=== PATIENT | female | born 1975 | race Caucasian/White ===

== ENCOUNTER → 2021-02-27 14:11 | Outpatient (CLI) | payer BC, SELFPAY ==
[2021-02-27 13:39] VITALS: BMI 36.1
== END ==
PROVIDERS: PCP Internal Medicine; Referring Provider Nurse Practitioner Women's Health; Visit Provider Nurse Practitioner Women's Health
DX: Z13.0 Encounter for screening for diseases of the blood and blood-forming organs and certain disorders involving the immune mechanism (principal); Z83.2 Family history of diseases of the blood and blood-forming organs and certain disorders involving the immune mechanism
CPT/HCPCS: 36415

== ENCOUNTER → 2021-03-13 09:56 | Outpatient (CLI) | payer BC, SELFPAY ==
--- NOTE | 2021-03-13 | EMB_PTH ---
PATIENT: TRISHA CAMP LOC: [facility]#:[id number] AGE/SX: 50/F ROOM: RE03/13/[address]: NEVILLE Spence : 1975 BED: DIS: SPEC #: [id number] RECD: 03/13/21 11:02 STATUS: INEZ JEANA #: [id number] ISMA: 03/13/21 00:[address]: Ann Steel NP DEPT: SURGICAL PATHOLOGY RECD BY: Son Light ENTERED: 03/13/21 11:02 SP TYPE: ENDOM BX/C ANDRESSA DR: Dr. Cortney Hernandez DO Tissues: Endometrium, NOS Procedures: Surgery Specimen Level IV HEADER OPERATION: Endometrial biopsy PRE-OP DIAGNOSIS: PMB TISSUE SUBMITTED: Endometrial biopsy MICROSCOPIC DIAGNOSIS Endometrial biopsy: Secretory endometrium. JOSE:aleta 03/14/2021 MICROSCOPIC DESCRIPTION Slides are reviewed. GROSS DESCRIPTION Received is one container labeled with the patient's name and not further designated. The specimen consists of multiple irregular fragments of pink-red soft tissue that in aggregate measure 3 x 2.5 x 0.3 cm. The specimen is totally submitted in one cassette. / SJ:aleta 03/13/21 TC:4 CPT: 90198
== END ==
PROVIDERS: PCP Internal Medicine; Referring Provider Nurse Practitioner Women's Health; Visit Provider Nurse Practitioner Women's Health
DX: N95.0 Postmenopausal bleeding (principal)
CPT/HCPCS: 36415; 81241; 88305

== ENCOUNTER → 2021-03-29 13:48 | Outpatient (CLI) | payer BC, SELFPAY ==
--- NOTE | 2021-03-29 13:48 | US_ITS ---
STUDY: ULTRASOUND OF THE FEMALE PELVIS - COMPLETE REASON FOR EXAM: Female, 45 years old. Bleeding; enlarged uterus LMP: 03/20/2021. TECHNIQUE: Transabdominal and Transvaginal TECHNICAL QUALITY: Adequate. COMPARISON: Comparison is made with prior examination dated 04/27/2017. FINDINGS: The uterus is anteverted and is in a midline position. The uterus is enlarged and measures 14.5 cm x 8 cm x 6.1 cm. There is a Nabothian cyst of the cervix. The endometrium measures 8 mm in thickness, and is hyperechoic. There is no demonstrated endometrial mass. There is a 4.9 cm x 4.6 cm x 4.6 cm fundal uterine fibroid. I.U.D. - The patient does not have an I.U.D. The right ovary is non-visualized. The left ovary is non-visualized. There is no fluid in the cul-de-sac. The pre void volume of the bladder was 366 ml. US/Transvaginal Non- IMPRESSION: Enlarged fibroid uterus. Electronically Signed: Mike Maurer MD at 14:56 EDT , Service support ,
--- NOTE | 2021-03-29 13:48 | US_ITS ---
STUDY: ULTRASOUND OF THE FEMALE PELVIS - COMPLETE REASON FOR EXAM: Female, 45 years old. Bleeding; enlarged uterus LMP: 03/20/2021. TECHNIQUE: Transabdominal and Transvaginal TECHNICAL QUALITY: Adequate. COMPARISON: Comparison is made with prior examination dated 04/27/2017. FINDINGS: The uterus is anteverted and is in a midline position. The uterus is enlarged and measures 14.5 cm x 8 cm x 6.1 cm. There is a Nabothian cyst of the cervix. The endometrium measures 8 mm in thickness, and is hyperechoic. There is no demonstrated endometrial mass. There is a 4.9 cm x 4.6 cm x 4.6 cm fundal uterine fibroid. I.U.D. - The patient does not have an I.U.D. The right ovary is non-visualized. The left ovary is non-visualized. There is no fluid in the cul-de-sac. The pre void volume of the bladder was 366 ml. US/Pelvic (Non ) IMPRESSION: Enlarged fibroid uterus. Electronically Signed: Mike Maurer MD at 14:56 EDT , Service support ,
== END ==
PROVIDERS: PCP Internal Medicine; Referring Provider Nurse Practitioner Women's Health; Visit Provider Nurse Practitioner Women's Health
DX: N92.0 Excessive and frequent menstruation with regular cycle (principal); N85.2 Hypertrophy of uterus
CPT/HCPCS: 76830; 76856

== ENCOUNTER → 2021-05-03 12:25 | Outpatient (CLI) | payer BC, SELFPAY ==
[2021-05-03 13:23] LABS: Absolute Lymphocyte Count 2.79 X10^3/uL (0.83-4.51); Absolute Neutrophil Count 8.5 X10^3/uL (2.0-7.7); Basophil# 0.03 X10^3/uL; Basophil% 0.2 % (0-1); Eosinophil# 0.22 X10^3/uL; Eosinophils% 1.8 % (0-5); Hematocrit 45.7 % (37-47); Hemoglobin 14.6 g/dL (12.0-15.0); Lymphocyte # 2.79 X10^3/ul (0.83-4.51); Lymphocyte % 22.5 % (19-41); Mean Corp Hgb Conc 31.9 g/dL (32-36); Mean Corpuscular Hgb 28.2 pg (27.0-32.0); Mean Corpuscular Volume 88.2 fL (81-99); Mean Platelet Vol. 11.2 fl (6.2-12.0); Monocyte# 0.76 X10^3/uL; Monocyte% 6.1 % (0-10); NRBC Flagged by Analyzer 0 % (0-5); Neutrophil # 8.52 X10^3/uL (2.7-7.7); Neutrophil % 68.9 % (47-70); Platelet Count 302 K/mm3 (150-450); RBC Distribution Width SD 42.4 fl (35.1-43.9); Red Blood Count 5.18 M/mm3 (4.2-5.4); White Blood Count 12.4 K/mm3 (4.4-11.0)
[2021-05-03 13:59] LABS: Thyroid Stim Hormone (TSH) 2.17 uIU/mL (0.358-3.74)
== END ==
PROVIDERS: PCP Internal Medicine; Referring Provider Obstetrics & Gynecology; Visit Provider Obstetrics & Gynecology
DX: Z13.29 Encounter for screening for other suspected endocrine disorder (principal); N92.0 Excessive and frequent menstruation with regular cycle
CPT/HCPCS: 36415; 84443; 85025

== ENCOUNTER 2021-07-09 08:33 | Day surgery (SDC) | payer BC, SELFPAY ==
[2021-07-09] VITALS (10 sets, daily range): BP systolic 115–134; BP diastolic 69–89; PULSE 63–98; RESP 14–18; TEMP 36.4–36.8; O2SAT 49–99; BMI 39.0
[2021-07-09] MEDS: Celecoxib 200 MG Capsule 400 MG PO (09:16)
[2021-07-09] MEDS: Phenazopyridine 95 MG Tablet 190 MG PO (09:16)
[2021-07-09] MEDS: Gabapentin 600 MG Tablet PO (09:16)
[2021-07-09] MEDS: Acetaminophen 500 MG Tablet 1000 MG PO ×2 (09:16→15:06)
[2021-07-09] MEDS: Enoxaparin 40 MG/0.4 ML Syringe SC (09:17)
[2021-07-09] MEDS: dexAMETHasone 10 MG/ML Vial 8 MG IV (09:17)
[2021-07-09 09:18] LABS: Internal QC Validated? YES +Cl - CLEAR BKGD; Pregnancy, Urine Negative Negative
[2021-07-09] MEDS: Lactated Ringers 1,000 ML 40 ML IV (09:32)
--- NOTE | 2021-07-09 09:44 | HP.PCM_ITS ---
History and Physical Date of Admission: 07/09/21 Vital Signs 06/24/21 15:32 Height 5 ft 3 in Weight: 216 lb BMI 38.2 BP 110/82 H Intake Visit Reasons: pre op lavh/bs Chief Complaint: pre op LAVH BS Probation Agent Required: No Is patient in pain?: No Allergies No Known Allergies Allergy (Unverified 06/24/21 15:32) Medications NK 06/24/21 [History Confirmed 06/24/21] Is last menstrual period known: No Post menopausal: No Patient : No : No PFSH Medical History Enlarged uterus Family History Father Heart disease Diabetes Hypertension Mother Hypertension Rheumatoid arthritis Factor 5 Leiden mutation, heterozygous Sister Factor 5 Leiden mutation, heterozygous Social History household members: spouse and other number of children: 2 current occupational status: employed current occupation: self employed history of recent travel: Yes Smoking Status: Never smoker alcohol intake: never substance use type: does not use diet: other what type of physical activity do you participate in: none seatbelt use: always do you feel safe at home: Yes additional social history: - Chris HPI pre op lavh/bs Details: TRISHA CAMP is a 46 year old who presents for preop visit having heavy periods. she has an enlarged uterus with fibroids Female Reproductive History Menopausal Symptoms: No hot flashes, No night sweats, No difficulty concentrat ing and No change in libido Pregancy History 2 Elective abortions Hx Para 2 Spontaneous abortions Hx # Term Pregnancies Ectopic pregnancies Hx # Pregnancies Multiple births # of living children 2 Past Pregnancies Del. Date Name GA/Weeks Outcome Route Bth Weight Gen Labor Lgth Anesthesia Del Locatn Provider FOB Unknown Coral 1994 Unknown Storm 1996 ROS Const Constitutional: Denies fatigue, night sweats, weight gain or weight loss ENT ENT: Reports system reviewed and no additional complaints, except as documented Cardio Card: Denies chest pain Resp Resp: Denies cough or dyspnea GI GI: Reports as per HPI; Denies constipation, nausea or vomiting : Reports as per HPI, urinary frequency, urinary incontinence and urinary urgency; Denies hot flashes, nipple discharge, vaginal discharge, vaginal dryness, vaginal odor or vaginal pruritus Musc Musc: Denies arthralgias, back pain or muscle weakness Skin Skin/Breast: Denies alopecia, change in hair, dry skin, breast mass, breast pain, breast skin changes or nipple discharge Neuro Neuro: Reports system reviewed and no additional complaints, except as documented Psych Psych: Reports system reviewed and no additional complaints, except as documented; Denies change in libido or difficulty concentrating Endo Endo: Denies cold intolerance, excessive sweating, heat intolerance or polydipsia Wilber/Lymph Hematologic/Lymphatic: Denies easy bleeding, Denies easy bruising and Denies lymphadenopathy Exam Const General: cooperative, healthy appearing, comfortable, no acute distress and well developed Orientation: alert [facility] Head: normal to inspection and normocephalic Ears: hearing grossly normal bilaterally and external ears normal Nose: external nose normal and nares normal Face and sinus: normal facial exam Neck Neck: normal visual inspection and no lymphadenopathy Thyroid: thyroid normal Chest Chest palpation & inspection: normal inspection of the chest Resp Effort & Inspection: normal respiratory effort Auscultation: clear to auscultation bilaterally Cardio Rate: regular rate Rhythm: regular rhythm Heart Sounds: S1 normal and S2 normal GI Inspection: normal to inspection and non-distended Palpation: soft and no hepatosplenomegaly General: bladder normal to palpation External Female Exam: normal external appearance and normal appearance of the urethra Urethra: normal appearance of the urethra, normal palpation and no discharge Speculum Exam - Vagina: normal appearance of the vagina and normal vaginal discharge Speculum Exam - Cervix: normal appearance of the cervix and nontender Bimanual Exam- Vagina & Uterus: normal bimanual exam, uterine size normal, bladder normal to palpation, uterine shape normal, No tender, uterine mobility normal, consistency normal, normal palpation and non-tender Bimanual Exam- Adnexa, other: normal adnexae, adnexae mobile, no masses and normal Pelvic Support: normal [facility] Other: gross motor intact no deficits, full bilateral strength Skin General: no rashes or lesions noted Neuro General: patient alert, patient awake, moves all extremities and no focal motor deficits Motor: muscle tone normal throughout Extrem General: normal to inspection and no pedal edema Psych Appearance: grossly normal Mental Status: mental status grossly normal Affect: normal affect Speech and Movement: speech and movement normal Coding Level of Care Code No Charge Diagnoses Enlarged uterus N85.2 Menorrhagia with regular cycle N92.0 Assessment and Plan Assessment and Plan (1) Enlarged uterus: Status: Acute Comment: 14 cm with 5 cm fibroid, plan ROCKY BS. Chris Plan - Dr. Catalina Stanley MD: After discussing the patient's diagnosis and treatment plan options, patient wishes to proceed with surgical management. I have discussed with the patient the risks, benefits, and alternatives of the procedure which include but are not limited to risks of anesthesia, bleeding, infection, possible damage to bowel, bladder, or surrounding vasculature which could lead to additional surgery to evaluate any complications. Patient agrees to procedure and wishes to proceed. ACOG/uptodate references given for additional information regarding procedure. (2) Menorrhagia with regular cycle: Status: Acute Comment: cbc tsh, due to fibroids, recommend emb also. 06/24/21 1554 .UPDATE- I have seen the patient and performed any clinically relevant updates to the history and physical exam. Catalina Stanley MD
--- NOTE | 2021-07-09 10:09 | PCM.OPRPT ---
Problems Associated Problem List Diagnoses (1) Menorrhagia with regular cycle: (2) Enlarged uterus: Report of Operation Date of Procedure: 07/09/21 Pre-Operative Diagnosis: AUB Post-Operative Diagnosis: same Surgery/Procedure Performed:: JUAN DANIEL Description of Surgical Findings:: enlarged fibroid uterus poultry tender: Annemarie Russo Type of Anesthesia: General Specimen's removed: uterus, tubes Drains: thomas Estimated Blood Loss (mL): 100 Fluids Replaced: crystalloid Description of Procedure: Patient received preoperative antibiotics and SCDs were on preoperatively. Patient was taken back to the operating room and placed in the dorsal lithotomy position. General anesthesia was induced and patient was prepped and draped in normal sterile fashion. Uterine manipulator was placed inside the uterus and Thomas catheter placed in the bladder. The umbilicus was grasped with towel clamps and an intraumbilical incision was made after injecting with quarter percent Marcaine and a Veress needle entered into the abdomen confirmed to be intra-abdominal with a low opening pressure. Abdomen was insufflated with CO2 gas and the Veress needle removed and the 5 mm trocar was placed under direct visualization without complication. Right and left lower quadrants were transilluminated and injected with quarter percent Marcaine and 5 mm ports placed under direct visualization. Pelvis was well visualized see operative findings for additional information. Bilateral fallopian tubes were identified and transected with the LigaSure device across the mesosalpinx to the level of the utero-ovarian ligament which was also transected with the LigaSure device. The broad ligament was opened up by transecting the round ligament bilaterally and skeletonizing the uterine vessels bilaterally and creating a bladder flap using the LigaSure device. The uterine arteries were transected bilaterally with good visualization of the bladder and the ureters were seen to be inferior lateral to the operative area. Attention was then paid to the vaginal portion of the procedure and the cervix was grasped with Ayanna clamps and circumferentially injected with dilute vasopressin. A circumferential incision was made and the vaginal mucosa was mobilized off posteriorly and the cul-de-sac entered into sharply and a longneck speculum placed. The anterior cul-de-sac was then identified and entered into sharply. The uterosacral ligaments were clamped cut and suture ligated with 0 Monocryl bilaterally followed by the cardinal ligaments which were clamped cut and suture ligated bilaterally with 0 Monocryl. The uterus serially descended and was removed without difficulty. Pelvic sidewall pedicles were checked and noted to have excellent hemostasis. The vaginal mucosa was reapproximated incorporating the posterior peritoneum. This was reapproximated using 0 Vicryl [id number] sutures. Excellent hemostasis was noted. The pelvis and cul-de-sac were well visualized and no significant active bleeding noted but some raw areas were seen on the peritoneum and therefore Carroll was applied. Pressure was taken down and the areas visualized and noted of excellent hemostasis. All ports were removed under direct visualization without complication and the abdomen was desufflated of air. The instruments were removed from the abdomen and the vaginal sweep was negative. Port sites on the abdomen were closed with 4-0 Monocryl interrupted sutures and Steri's and windows were applied. She was awoken and taken recovery in stable condition. Grafts/Implants Used: none Complications none Admit VTE Documentation VTE Present on Admission: No VTE Mechan Device Prophylaxis: SCD's VTE Pharm Prophylaxis ordered?: Yes Procedures Urinary/Genital 52xxx-59xxx: 38903 LAVH+BS/O <250gr Uterus
--- NOTE | 2021-07-09 10:10 | EX.PCM.DISCH ---
Discharge Instructions Diet Discharge Diet: No restrictions Activity May resume sexual activity in: 6 weeks Weight Bearing Status: Full weight bearing Dressing / Incision Call your doctor if your incision/area has: Continuous Slow Oozing, Sudden Increased Bleeding, Increased Pain/ Swelling, Increased Redness and Foul Smelling Discharge Call your doctor if you observe: Fever of 101 or Higher, Using more than 1 pad per hour, Shortness of breath, Chest pain and Uncontrolled pain Suture Line Care: Avoid Pulling/Pushing and Avoid Pinching/Bending Remove Dressing in: 1 week (if present) Cleanse incision/area with: Soap & Water and Keep Dressing Clean & Dry Follow Up Care Please Follow Up With: Catalina Stanley MD When: Call to make an appointment with your doctor for a postop visit in 2 and 6 weeks. Test Results: Test results from this visit will be discussed in further detail at your follow-up appointment, if applicable. Discharge Plan Admission Primary Reason for Your Visit: hysterectomy Attending Provider: Catalina Stanley Primary Care Provider: Cortney Hernandez Discharge Orders/Prescriptions Prescriptions: New oxycodone-acetaminophen [Percocet] 5-325 mg tablet 1 tab PO Q6H PRN (Reason: pain) 7 Days Qty: 20 RF: 0 naproxen [naproxen] 500 MG tablet 500 mg PO BID PRN PRN (Reason: Pain) Qty: 30 RF: 1 Referrals / Follow Up: Cortney Hernandez DO [Primary Care Provider] - Disposition Disposition (needs filled in before D/C Order can be placed): Home, Self Care
[2021-07-09 10:26] LABS: Bedside Glucose 87 mg/dL (70-110)
[2021-07-09] MEDS: Bupivacaine 0.25% 30 ML Vial (10:30)
[2021-07-09] MEDS: Scopolamine 1mg/72hr Patch 1 PATCH TD (10:40)
[2021-07-09] MEDS: Lactated Ringers 1,000 ML 70 ML IV ×2 (10:40→14:58)
--- NOTE | 2021-07-09 10:40 | HYST_PTH ---
PATIENT: TRISHA CAMP [place] [facility] [id number] AGE/SX: 46/F ROOM: RE07/09/[address]: Dr. Catalina Stanley MD : 1975 BED: DIS: 07/09/2021 SPEC #: [id number] RECD: 07/09/21 13:28 STATUS: INEZ JEANA #: [id number] ISMA: 07/09/21 10:[address]: Catalina Stanley DEPT: SURGICAL PATHOLOGY RECD BY: Yi Perdomo ENTERED: 07/09/21 13:50 SP TYPE: HYSTERECT OTHR DR: Dr. Cortney Hernandez, DO Tissues: Uterus, NOS Procedures: Surgery Specimen Level V HEADER OPERATION: ERAS, hysterectomy, LAVH, salpingectomy PRE-OP DIAGNOSIS: Enlarged uterus, menorrhagia with regular cycle TISSUE SUBMITTED: Cervix, uterus, bilateral fallopian tubes MICROSCOPIC DIAGNOSIS Uterus, hysterectomy: Cervix ? squamous metaplasia and mild chronic inflammation. Endometrium ? proliferative endometrium. Myometrium ? leiomyoma. Right fallopian tube ? vascular congestion. Left fallopian tube ? vascular congestion. AM:aleta 07/10/2021 MICROSCOPIC DESCRIPTION Slides are reviewed. GROSS DESCRIPTION Received in fixative is one container labeled with the patient's name and designated uterus. The specimen consists of a morcellated uterus received in three fragments ranging in size from 2 to 10 cm and in aggregate weighing 294 gm. The presumed endocervical canal measures 3.8 cm in length and is grossly unremarkable. The triangular endometrial cavity measures 5 x 3 cm. The velvety, reddish-young endometrium measures up to 0.2 cm in thickness. The myometrium measures 2.8 cm in average thickness and contains a rubbery, pink-white nodule measuring 3.5 cm in greatest dimension. Serial sections of the nodule reveal rubbery, cut surface without areas of cyst formation or necrosis. The right and left fallopian tubes are similar in appearance. The average length is 6 cm and average diameter is 0.7 cm. The fimbrial ends on both fallopian tubes are grossly unremarkable. [employer] sections are submitted in ten cassettes as follows: 1 & 2 ? cervix and endocervix, 3 & 4 - anterior uterine wall, 5 & 6 - posterior uterine wall, 7 & 8 ? myometrial mass, 9 - right fallopian tube, 10 - left fallopian tube. / AM:aleta 07/09/21 TC:1 [facility]: [id number]
[2021-07-09] MEDS: Vasopressin 20 UNITS/ML Vial (10:50)
[2021-07-09] MEDS: Ondansetron 4 MG/2 ML Vial IV (11:53)
[2021-07-09 14:13] LABS: Hemoglobin 14.3 g/dL (12.0-15.0); Mean Corp Hgb Conc 33.3 g/dL (32-36); Mean Corpuscular Hgb 28.8 pg (27.0-32.0); Mean Corpuscular Volume 86.5 fL (81-99); Mean Platelet Vol. 10.5 fl (6.2-12.0); Platelet Count 266 K/mm3 (150-450); RBC Distribution Width CV 13.3 % (11.6-14.6); RBC Distribution Width SD 41.8 fl (35.1-43.9); Red Blood Count 4.97 M/mm3 (4.2-5.4); White Blood Count 15.3 K/mm3 (4.4-11.0)
[2021-07-09] MEDS: Ketorolac 30 MG/ML Syringe IV (14:59)
== END 2021-07-09 16:05 | disposition home or self-care (01) ==
LOC: SDC 08:34 → AC 08:34
PROVIDERS: Anesthesiology; PCP Internal Medicine; Referring Provider Obstetrics & Gynecology; Visit Provider Obstetrics & Gynecology
PROC: 0UT9FZZ Resection of Uterus, Via Natural or Artificial Opening With Percutaneous Endoscopic Assistance (ICD-10-PCS; CPT 58554; principal; 2021-07-09 10:15)
DX: N92.0 Excessive and frequent menstruation with regular cycle (principal); N85.2 Hypertrophy of uterus
CPT/HCPCS: 00944; 58554; 36415; 81025; 82962; 83735; 85027; 86850; 86900; 86901; 88307; J7120; J2405

== ENCOUNTER 2021-09-26 10:12 | Outpatient (CLI) | payer BC, SELFPAY ==
[2021-09-26 11:18] LABS: Hemoglobin A1c 5.6 % (3.8-5.6)
[2021-09-26 11:20] LABS: Rheumatoid Factor < 10.0 IU/mL (<15); Thyroid Stim Hormone (TSH) 2.35 uIU/mL (0.358-3.74)
[2021-09-27 11:57] LABS: AST(SGOT) 32 U/L (15-37); Alanine Aminotransfer ALT/SGPT 39 U/L (13-56); Albumin, Serum 3.8 g/dL (3.2-5.0); Alkaline Phosphatase 89 U/L (45-117); Anion Gap 5 (5-15); BUN 21 mg/dL (7-18); BUN/Creat Ratio 23.2 RATIO (10-20); Calcium,Total 9.2 mg/dL (8.5-10.1); Chloride 105 mmol/L (98-107); EST Glomerular Filtration Rate 71 mL/min (>60); Est Glom Filt Rate - Afr Amer 85 mL/min (>60); Globulin 3.9 g/dL (2.2-4.2); Glucose 101 mg/dL (74-106); Potassium 4.7 mmol/L (3.5-5.1); Protein, Total 7.7 g/dL (6.4-8.2); Sodium Level 137 mmol/L (136-145)
[2021-09-27 22:07] LABS: ANTINUCLEAR ANTIBODIES DIRECT Negative (Negative)
== END 2021-09-26 23:59 | disposition home or self-care (01) ==
LOC: PAVLAB 10:14
PROVIDERS: PCP Internal Medicine; Referring Provider Internal Medicine; Visit Provider Internal Medicine
DX: Z00.00 Encounter for general adult medical examination without abnormal findings (principal); Z13.1 Encounter for screening for diabetes mellitus; M25.50 Pain in unspecified joint; Z86.39 Personal history of other endocrine, nutritional and metabolic disease
CPT/HCPCS: 36415; 80053; 83036; 84443; 86038; 86225; 86235; 86431

== ENCOUNTER → 2022-10-20 | Outpatient (CLI) | payer BC, SELFPAY ==
--- NOTE | 2022-10-20 09:09 | NEURO_ITS ---
NCS and/or EMG Patient Report Ordering Doctor: Cortney Hernandez DATE OF SERVICE: 10/20/22 Indication: Approximately one year of bilateral hand numbness, pain, and tingling. Symptoms are present to some degree at all times, but worsen with certain activities. Evaluate for entrapment neuropathy. Findings: Nerve conduction studies were performed in the right and left upper extremities. The right median motor study recording the abductor pollicis brevis showed a normal amplitude, prolonged distal latency and mildly slowed conduction velocity. The right ulnar motor study recording the abductor digiti minimi showed a normal amplitude, normal distal latency and normal conduction velocity. No conduction block or focal slowing was present across the elbow. The right median sensory response recording digit two showed a slightly reduced amplitude, prolonged latency and markedly slowed conduction velocity. The right ulnar sensory response recording digit five showed a normal amplitude, latency and conduction velocity. The right radial sensory response recording over the extensor snuff box showed a normal amplitude, latency and conduction velocity. The left median motor study recording the abductor pollicis brevis showed a normal amplitude, prolonged distal latency and normal conduction velocity. The l eft ulnar motor study recording the abductor digiti minimi showed a normal amplitude, normal distal latency and normal conduction velocity. No conduction block or focal slowing was present across the elbow. The left median sensory response recording digit two showed a reduced amplitude, prolonged latency and markedly slowed conduction velocity. The left ulnar sensory response recording digit five showed a normal amplitude, latency and conduction velocity. The left radial sensory response recording over the extensor snuff box showed a normal amplitude, latency and conduction velocity. Needle EMG of the bilateral abductor pollicis brevis muscles was performed. On the right, insertional activity was increased with sparse positive sharp waves. Motor units were slightly large amplitude and long duration with normal recruitment. On the left, insertional activity was normal. Motor units were slightly large amplitude and long duration with normal recruitment. Impression: This is an abnormal study. 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 The pathophysiology is predominantly demyelination, however, there is evidence of some secondary axonal injury. These findings are compatible with the clinical diagnosis of carpal tunnel syndrome. Gregorio Rodriguez D.O. Multi Select Codes Neurology Neurology Interp Codes: 23038-81 Musc test done w/n test comp (interp) (Qty:2) and 28174-55 Nrv cndj test 9-10 studies (interp)
== END | disposition home or self-care (01) ==
PROVIDERS: PCP Internal Medicine; Referring Provider Internal Medicine; Visit Provider Internal Medicine
DX: G56.03 Carpal tunnel syndrome, bilateral upper limbs (principal)
CPT/HCPCS: 95885; 95911

== ENCOUNTER 2024-01-26 12:27 | Emergency (ER) | payer BC, SELFPAY ==
[2024-01-26 12:27] VITALS: BP 123/80; PULSE 108; RESP 18; TEMP 37.2; O2SAT 97; BMI 36.4
[2024-01-26 12:30] VITALS: BP 131/82; PULSE 109; RESP 18; TEMP 37.2; O2SAT 97
[2024-01-26 13:30] VITALS: BP 128/88; PULSE 88; RESP 18; TEMP 36.9; O2SAT 98
--- NOTE | 2024-01-26 14:34 | EDS_ITS ---
HPI History of Present Illness Chief Complaint: Fever Narrative Narrative: 48-year-old female presents with painful lumps, swelling, redness, and fever in her right axillary area. She states that her symptoms actually began about 11 days ago when she had a ping-pong ball sized mass in her right axillary area. It seems to be growing. She was seen and evaluated at the [place] emergency department on Thursday, 4 days ago where she was given IV antibiotics and placed on Keflex. They were unsure as to what the mass was so CT with IV contrast was performed and it appears that it is unable to be lanced because they are enlarged lymph nodes. Concern is for infectious process versus malignancy. While she is taking cephalexin, she reports fever today and she last took an antipyretic at 10 AM approximately 4 hours ago. She was told by her nurse practitioner that she should come to the emergency department for further evaluation. [facility] Medical History Acute pharyngitis, unspecified Wears contact lenses Anxiety Enlarged uterus Allergy/AdvReac Type Severity Reaction Status Date / Time No Known Allergies Allergy Verified 09/11/22 06:28 Family History Father Heart disease Diabetes Hypertension Mother Hypertension Rheumatoid arthritis Factor 5 Leiden mutation, heterozygous Sister Factor 5 Leiden mutation, heterozygous Surgical History History of bilateral salpingectomy History of [facility] Social History household members: spouse and other number of children: 2 current occupational status: employed current occupation: self employed history of recent travel: Yes Smoking Status: Never smoker alcohol intake: never substance use type: does not use diet: other what type of physical activity do you participate in: none seatbelt use: always do you feel safe at home: Yes additional social history: - Chris [employer] Narrative Constitutional: Positive fever, no chills. HEENT: No sore throat. No neck pain. No loss of vision. No rhinorrhea. Cardiovascular: No chest pain. No palpitations. No pedal edema. Respiratory: No cough, no shortness of breath. Abdominal: No abdominal pain. No nausea. No vomiting. Genitourinary: No dysuria. No hematuria. Musculoskeletal: No myalgias. No arthralgias. Right axillary masses, reportedly growing in size, tender to touch. Neurologic: No headaches. No dizziness. No lightheadedness. Skin: No rash. Positive redness in axillary area. Psychiatric: No depression. No anxiety. EXAM Physical Exam Narrative Exam Narrative: Afebrile. Vital signs noted. Nontoxic-appearing. Regular rate and rhythm. Lungs clear to auscultation bilaterally. Abdomen soft nontender with normal active bowel sounds. Positive enlarged masses right axillary with overlying erythema. No fluctuance. Const Vital Signs: 01/26/24 12:27 01/26/24 12:30 01/26/24 13:29 Temperature 99 F 99 F Temperature Source Temporal Temporal Pulse Rate 108 H 109 H Respiratory Rate 18 18 Respiratory Effort Normal Respiratory Pattern Normal Blood Pressure 123/80 H 131/82 H Blood Pressure Mean 94 98 Pulse Ox 97 97 Oxygen Delivery Method Room Air Room Air 01/26/24 13:30 01/26/24 15:00 01/26/24 16:10 Temperature 98.5 F 98.6 F 97.8 F Temperature Source Oral Oral Pulse Rate 88 88 78 Respiratory Rate 18 18 18 Respiratory Effort Respiratory Pattern Blood Pressure 128/88 H 121/80 H 121/80 H Blood Pressure Mean 101 93 93 Pulse Ox 98 98 98 Oxygen Delivery Method Room Air MDM MDM MDM Narrative Medical decision making narrative: The differential diagnosis was abscess versus enlarged lymph nodes versus enlarged sweat glands. Patient does have her CT report that I reviewed on her MyChart on her mobile phone which shows that they are enlarged lymph nodes. I do feel that her exam is more consistent with lymphadenitis. She is currently afebrile here. I also reviewed her CBC which showed a white count elevated at 16,000 and a hemoglobin of 12 with normal platelets. I will repeat this to make sure that her CBC has not changed significantly over the last 4 days. She was given a bolus of Rocephin as she had received that previously along with ketorolac. I reviewed her laboratory work and she has an elevated white count of 16.7, it has not changed significantly from her laboratory work a few days ago. Potassium slightly low at 3.2 which I think is nonspecific, glucose elevated at 113 with anion gap normal at 6. I had paged out to Dr. Brandon, but I do not feel she needs a change in her antibiotics. The erythema might be secondary to more hyperemia of the masses in her axilla. I reviewed the radiology report again and they are more nodular measuring up to 18 cm and 11 cm. I offered to write her for stronger pain medication but she declined and prefers [id number] medications such as Tylenol and ibuprofen. I put in a fast pass for oncology referral as there is concern for malignancy of these masses. I feel she can be discharged to follow-up. Return instructions to the emergency department were reviewed. She was not febrile here. I was able to discuss the patient with Dr. Brandon who agrees with fast pass and outpatient follow-up closely. Disposition is discharged home in stable condition. Patient is agreeable to the plan. History & Record Review Discussion w/independent historian: Patient Additional record(s) reviewed:: Prior outpatient record (CT report from after visit summary from [facility].) Lab Data Attestation: I reviewed the patient's lab results. Labs: Laboratory Results - last 24 hr 01/26/24 15:01 WBC 16.7 H RBC 4.48 Hgb 13.1 Hct 40.6 MCV 90.6 MCH 29.2 MCHC 32.3 RDW Std Deviation 43.0 RDW Coeff of Cornelius 13.0 Plt Count 276 MPV 10.3 Immature Gran % (Auto) 1.300 H Neut % (Auto) 81.8 H Lymph % (Auto) 8.3 L Pratt % (Auto) 7.8 Eos % (Auto) 0.5 Baso % (Auto) 0.3 Absolute Neuts (auto) 13.6 H Absolute Lymphs (auto) 1.39 Nucleated RBC % 0 Sodium 137 Potassium 3.2 L Chloride 106 Carbon Dioxide 25.0 Anion Gap 6 BUN 7 Creatinine 0.67 Estim Creat Clear Calc 109.04 Est GFR (MDRD) Af Amer 119 Est GFR (MDRD) Non-Af 98 BUN/Creatinine Ratio 10.4 Glucose 113 H Calcium 8.7 Discharge Plan Triage Chief Complaint: Fever ED Provider: Aravind Grimm Dx/Rx/DC Orders Clinical Impression: Mass of right axilla Instructions: ED Tumor, Uncertain Cause Other Ambulatory Orders: Fast Pass: Oncology Referral [facility] (Routine) Facility: [facility] - Location: [facility] Ordered By: Aravind Grimm Primary Care Provider: Oberhauser,Cortney Referrals: Cortney Hernandez, [Primary Care Provider] - Activity Restrictions/Additional Instructions: Follow-up with oncology as soon as possible. They should be contacting you tomorrow regarding your right axillary masses. Print Language: Vincentian Disposition Disposition: Home, Self Care
[2024-01-26] MEDS: Ketorolac 15 MG/ML Vial IV (14:57)
[2024-01-26] MEDS: Ceftriaxone 2 GM in 0.9% Normal Saline (50mL MB+) 50 ML IV (14:57)
[2024-01-26 15:00] VITALS: BP 121/80; PULSE 88; RESP 18; TEMP 37; O2SAT 98
[2024-01-26 15:10] LABS: Absolute Lymphocyte Count 1.39 X10^3/uL (0.83-4.51); Absolute Neutrophil Count 13.6 X10^3/uL (2.0-7.7); Basophil# 0.05 X10^3/uL; Basophil% 0.3 % (0-1); Eosinophil# 0.08 X10^3/uL; Eosinophils% 0.5 % (0-5); Hematocrit 40.6 % (37-47); Hemoglobin 13.1 g/dL (12.0-15.0); Lymphocyte # 1.39 X10^3/ul (0.83-4.51); Lymphocyte % 8.3 % (19-41); Mean Corp Hgb Conc 32.3 g/dL (32-36); Mean Corpuscular Hgb 29.2 pg (27.0-32.0); Mean Corpuscular Volume 90.6 fL (81-99); Mean Platelet Vol. 10.3 fl (6.2-12.0); Monocyte% 7.8 % (0-10); NRBC Flagged by Analyzer 0 % (0-5); Neutrophil # 13.64 X10^3/uL (2.7-7.7); Neutrophil % 81.8 % (47-70); Platelet Count 276 K/mm3 (150-450); Red Blood Count 4.48 M/mm3 (4.2-5.4); White Blood Count 16.7 K/mm3 (4.4-11.0)
[2024-01-26 15:26] LABS: Anion Gap 6 (5-15); BUN 7 mg/dL (7-18); BUN/Creat Ratio 10.4 RATIO (10-20); Calcium,Total 8.7 mg/dL (8.5-10.1); Chloride 106 mmol/L (98-107); Creatinine, Serum 0.67 mg/dL (0.55-1.02); EST Glomerular Filtration Rate 98 mL/min (>60); Est Glom Filt Rate - Afr Amer 119 mL/min (>60); Estimated Creatinine Clearance 109.04 ml/min; Glucose 113 mg/dL (74-106); Potassium 3.2 mmol/L (3.5-5.1); Sodium Level 137 mmol/L (136-145)
[2024-01-26 16:10] VITALS: BP 121/80; PULSE 78; RESP 18; TEMP 36.6; O2SAT 98
== END 2024-01-26 16:14 | disposition home or self-care (01) ==
PROVIDERS: Emergency Provider Emergency Medicine; PCP Internal Medicine; Visit Provider Emergency Medicine
DX: R22.31 Localized swelling, mass and lump, right upper limb (principal)
CPT/HCPCS: 80048; 85025; 99282; J7050; J0696

== ENCOUNTER → 2024-01-28 | Outpatient (CLI) | payer BC, SELFPAY ==
--- NOTE | 2024-01-28 08:45 | US_ITS ---
STUDY: ULTRASOUND BREAST - RIGHT REASON FOR EXAM: Female, 48 years old. Painful right axillary mass. Skin erythema. TECHNIQUE: Axial and longitudinal images of the RIGHT breast were performed with a high resolution ultrasound transducer. # OF IMAGES: 39 COMPARISON: None. FINDINGS: RIGHT Breast: The axillary region of the right breast was examined with ultrasound. There is a complex hypoechoic soft tissue density measuring 5.4 cm x 5.7 site of by 3 cm. This corresponds to the palpable abnormality. The overlying skin is erythematous. This may represent an abscess. Drainage recommended. US/Breast Limited Unilateral IMPRESSION: Complex soft tissue mass in the right axilla measuring 5.4 cm x 5.7 cm x 3 cm. The overlying skin is erythematous. Drainage recommended. Abscess should be ruled out. ASSESSMENT CATEGORY: BIRADS Category 2: Benign. A letter regarding these results will be sent to the patient by the facility within 30 days. Electronically Signed: Mike Maurer MD at 11:10 EDT ,
== END | disposition home or self-care (01) ==
PROVIDERS: PCP Internal Medicine; Referring Provider Surgery; Visit Provider Surgery
DX: R22.31 Localized swelling, mass and lump, right upper limb (principal)
CPT/HCPCS: 76642; 87070; 87075; 87077; 87186; 87205

== ENCOUNTER → 2024-03-04 | Outpatient (CLI) | payer BC, SELFPAY ==
--- NOTE | 2024-03-04 13:23 | BI_ITS ---
MAMMOGRAPHY - BILATERAL SCREENING REASON FOR EXAM: Female, 48 years old. Routine annual screening examination. PERTINENT HISTORY: Non-contributory. Prior right breast abscess drainage. TECHNIQUE: Digital bilateral breast sami (3D mammographic acquisition) in the CC and MLO projections. 2-D mediolateral oblique (MLO) and craniocaudad (CC) views of both breasts were obtained. CAD: Full Field Digital Mammography with Computer Added Detection was performed. COMPARISON: Comparison is made with prior outside examination dated March 21, 2020. FINDINGS: Breast Composition: There are scattered areas of fibroglandular density. There are no dominant masses or suspicious calcifications. Stable small benign-appearing bilateral axillary lymph nodes. No other significant abnormalities are identified. There has been no significant change since the prior study. BI/SCRN MAMM (CAD)W/SAMI BILAT IMPRESSION: Stable bilateral screening mammogram. Yearly follow-up mammogram recommended. (A) ASSESSMENT CATEGORY: BIRADS Category 2: Benign. A letter regarding these results will be sent to the patient by the facility within 30 days. Approximately 10% of breast cancers are not detected by mammography. A normal mammogram should not delay biopsy of a clinically suspicious abnormality. [id number] Electronically Signed: Mike Maurer MD at 14:54 EDT ,
== END | disposition home or self-care (01) ==
LOC: OPBI 13:22
PROVIDERS: PCP Internal Medicine; Referring Provider Surgery; Visit Provider Surgery
DX: Z12.31 Encounter for screening mammogram for malignant neoplasm of breast (principal)
CPT/HCPCS: 77063; 77067

== ENCOUNTER → 2024-06-30 | Outpatient (CLI) | payer BC, SELFPAY | END | disposition home or self-care (01) | LOC: LABSPEC 16:02 | PROVIDERS: PCP Internal Medicine; Referring Provider Surgery; Visit Provider Surgery | DX: L02.411 Cutaneous abscess of right axilla (principal) | CPT/HCPCS: 87070; 87075; 87077; 87186; 87205; 87641 ==